=== PATIENT | male | born 1950 | race Caucasian/White ===

== ENCOUNTER 2022-07-22 17:20 | Emergency (ER) | payer MEDICARE, OTHER ==
[2022-07-22] VITALS (10 sets, daily range): BP systolic 178–224; BP diastolic 94–121
[~2022-07-22] VITALS: Ht 182.9 cm; Wt 80.3 kg
[2022-07-22] MEDS ORDERED: CHOLESTYRAMINE4 G1 PO (19:06)
[2022-07-22] MEDS ORDERED: SPS15 GM/601 PO (19:07)
[2022-07-22] MEDS ORDERED: LORTAB 1010 MG PO (19:08)
[2022-07-22] MEDS ORDERED: FUROSEMIDE20 MG PO (19:09)
[2022-07-22] MEDS ORDERED: COREG12.5 MG PO (19:10)
[2022-07-22] MEDS ORDERED: ALLOPURINOL100 MG PO (19:10)
[2022-07-22] MEDS ORDERED: OMEPRAZOLE20 MG PO (19:12)
[2022-07-22 19:44] LABS: URINE BILIRUBIN - DIPSTICK NEGATIVE (NEGATIVE); URINE BLOOD DIPSTICK LARGE (NEGATIVE); URINE GLUCOSE - DIPSTICK NEGATIVE (NEGATIVE); URINE KETONE NEGATIVE (NEGATIVE); URINE LEUK ESTERASE NEGATIVE (NEGATIVE); URINE PH 5.5 (4.5-8.0); URINE PROTEIN - DIPSTICK 100 mg/dL (NEG-TRACE); URINE UROBILINOGEN - DIPSTICK 0.2 E.U./dL (0.2)
[2022-07-22 19:45] LABS: URINE NITRITE - DIPSTICK NEGATIVE (Negative)
[2022-07-22 19:46] LABS: URINE COLOR DK. YELLOW
[2022-07-22 19:46] LABS: BASO% 0.6 % (0-3); EOS% 2.4 % (0-8); HEMATOCRIT 21.6 % (39.0-50.0); IMMATURE GRANULOCYTES 0.6 % (0.0-5.0); LYMPH% 19.7 % (15-41); MEAN CELL VOLUME 113.1 fL CALC (80.0-100.0); MEAN CORPUSCULAR HGB 35.1 pG CALC (26.0-32.0); MONO% 14.1 % (2-13); NEUT# 3.34 thou/uL (1.82-7.42); NEUT% 62.6 % (42-76); RED BLOOD COUNT 1.91 mill/uL (4.70-6.10); RED CELL DISTRI WIDTH 13.4 % (11.5-15.5)
[2022-07-22 19:51] LABS: HEMOGLOBIN 6.7 g/dl (14.0-18.0)
[2022-07-22 19:54] LABS: URINE RBC >100 RBC/hpf (0-5)
[2022-07-22 20:03] LABS: ALBUMIN 3.6 g/dL (3.2-5.0); BILIRUBIN, TOTAL 0.3 mg/dL (0.2-1.3); POTASSIUM 4.3 mmol/l (3.5-5.1); TOTAL PROTEIN 6.4 g/dL (6.3-8.2)
[2022-07-22 20:06] LABS: ACT PARTIAL THROMBO TIME 18.1 SECONDS (20.0-32.5); PROTHROMBIN TIME 10.2 SECONDS (9.0-12.5)
[2022-07-22 20:14] LABS: CREATININE 6.1 mg/dL (0.7-1.3)
== END 2022-07-22 22:33 | disposition short-term general hospital (02) ==
LOC: ED 17:20
PROVIDERS: Emergency Medicine
PROC: 30233N1 Transfusion of Nonautologous Red Blood Cells into Peripheral Vein, Percutaneous Approach (ICD-10-PCS; principal; 2022-07-22)
DX: N17.9 Acute kidney failure, unspecified (principal); D64.9 Anemia, unspecified; I16.9 Hypertensive crisis, unspecified; R31.9 Hematuria, unspecified; I12.9 Hypertensive chronic kidney disease with stage 1 through stage 4 chronic kidney disease, or unspecified chronic kidney disease; N18.9 Chronic kidney disease, unspecified; Z20.822 Contact with and (suspected) exposure to COVID-19
CPT/HCPCS: P9016

== ENCOUNTER 2022-08-21 09:35 | Inpatient (IN) | payer MEDICARE, OTHER ==
[~2022-08-21] VITALS: Ht 182.9 cm; Wt 82.6 kg
[2022-08-21] VITALS (15 sets, daily range): BP systolic 106–219; BP diastolic 46–101
[~2022-08-21 09:35] MED LIST: ALLOPURINOL100 MG PO; CHOLESTYRAMINE4 G1 PO; COREG12.5 MG PO; FUROSEMIDE20 MG PO; LORTAB 1010 MG PO; OMEPRAZOLE20 MG PO; SPS15 GM/601 PO
[2022-08-21] MEDS ORDERED: OMNI-PAC300 MG PO (10:00)
[2022-08-21 11:23] LABS: BASO% 0.6 % (0-3); EOS% 3.6 % (0-8); HEMATOCRIT 23.1 % (39.0-50.0); IMMATURE GRANULOCYTES 0.3 % (0.0-5.0); LYMPH% 7.6 % (15-41); MEAN CELL VOLUME 111.1 fL CALC (80.0-100.0); MEAN CORPUSCULAR HGB 33.7 pG CALC (26.0-32.0); MEAN CORPUSCULAR HGB CONC 30.3 g/dL CAL (32.0-36.0); MONO% 10.1 % (2-13); NEUT# 6.06 thou/uL (1.82-7.42); NEUT% 77.8 % (42-76); RED BLOOD COUNT 2.08 mill/uL (4.70-6.10); RED CELL DISTRI WIDTH 14.8 % (11.5-15.5)
[2022-08-21 11:24] LABS: HEMOGLOBIN 7.1 g/dl (14.0-18.0)
[2022-08-21 12:37] LABS: ALBUMIN 3.8 g/dL (3.2-5.0); BILIRUBIN, TOTAL 0.3 mg/dL (0.2-1.3); TOTAL PROTEIN 6.7 g/dL (6.3-8.2)
[2022-08-21 12:42] LABS: CREATININE 8.8 mg/dL (0.7-1.3)
[2022-08-21 12:43] LABS: POTASSIUM 7.3 mmol/l (3.5-5.1)
[2022-08-21] MEDS ORDERED: TORSEMIDE20 M1 PO (15:15)
[2022-08-21 15:21] LABS: POTASSIUM 6.3 mmol/l (3.5-5.1)
[2022-08-21 15:22] LABS: CREATININE 8.4 mg/dL (0.7-1.3)
[2022-08-21 19:07] LABS: CREATININE 8.4 mg/dL (0.7-1.3); POTASSIUM 6.8 mmol/l (3.5-5.1)
[2022-08-21 20:38] LABS: URINE BILIRUBIN - DIPSTICK NEGATIVE (NEGATIVE); URINE BLOOD DIPSTICK TRACE-INTACT (NEGATIVE); URINE CLARITY CLEAR; URINE COLOR YELLOW; URINE GLUCOSE - DIPSTICK NEGATIVE (NEGATIVE); URINE KETONE TRACE mg/dL (NEGATIVE); URINE LEUK ESTERASE NEGATIVE (Negative); URINE NITRITE - DIPSTICK NEGATIVE (Negative); URINE PROTEIN - DIPSTICK 100 mg/dL (NEG-TRACE); URINE SPECIFIC GRAVITY >=1.030; URINE UROBILINOGEN - DIPSTICK 0.2 E.U./dL (0.2)
[2022-08-21 20:59] LABS: URINE RBC 0-2 RBC/hpf (0-5); URINE WBC 0-2 WBC/hpf (0-5)
[2022-08-21 23:32] LABS: CREATININE 9.6 mg/dL (0.7-1.3); POTASSIUM 7.3 mmol/l (3.5-5.1)
[2022-08-22 03:05] LABS: BASO% 0.3 % (0-3); EOS% 3.2 % (0-8); HEMATOCRIT 21.2 % (39.0-50.0); IMMATURE GRANULOCYTES 0.3 % (0.0-5.0); LYMPH% 12.3 % (15-41); MEAN CELL VOLUME 108.7 fL CALC (80.0-100.0); MEAN CORPUSCULAR HGB 33.8 pG CALC (26.0-32.0); MEAN CORPUSCULAR HGB CONC 31.1 g/dL CAL (32.0-36.0); NEUT# 5.12 thou/uL (1.82-7.42); NEUT% 70.9 % (42-76); RED BLOOD COUNT 1.95 mill/uL (4.70-6.10); RED CELL DISTRI WIDTH 14.7 % (11.5-15.5)
[2022-08-22 03:13] LABS: TOTAL PROTEIN 5.4 g/dL (6.3-8.2)
[2022-08-22 03:36] LABS: HEMOGLOBIN 6.6 g/dl (14.0-18.0)
[2022-08-22 03:37] LABS: ALBUMIN 2.8 g/dL (3.2-5.0); BILIRUBIN, TOTAL 0.1 mg/dL (0.2-1.3); CREATININE 8.2 mg/dL (0.7-1.3); POTASSIUM 5.5 mmol/l (3.5-5.1)
[2022-08-22 04:06] VITALS: BP 129/55
[2022-08-22 04:37] VITALS: BP 129/60
[2022-08-22 04:38] VITALS: BP 129/60
[2022-08-22 04:54] VITALS: BP 132/64
[2022-08-22 04:56] VITALS: BP 132/64
== END 2022-08-22 05:45 | disposition short-term general hospital (02) | DRG 683 ==
LOC: ED 09:35 → ED-I 10:16 → ED 10:16 → ED-I 13:10 → ED 14:07 → MS2 14:08
PROVIDERS: Family Medicine; Internal Medicine Nephrology; ADMIT Internal Medicine; ATTEND Internal Medicine
PROC: 30233N1 Transfusion of Nonautologous Red Blood Cells into Peripheral Vein, Percutaneous Approach (ICD-10-PCS; principal; 2022-08-22)
DX: N17.9 Acute kidney failure, unspecified (principal); I12.0 Hypertensive chronic kidney disease with stage 5 chronic kidney disease or end stage renal disease; E87.5 Hyperkalemia; N18.5 Chronic kidney disease, stage 5; N25.81 Secondary hyperparathyroidism of renal origin; E86.9 Volume depletion, unspecified; D64.9 Anemia, unspecified; S51.811A Laceration without foreign body of right forearm, initial encounter; M25.551 Pain in right hip; V58.4XXA Person boarding or alighting a pick-up truck or van injured in noncollision transport accident, initial encounter
CPT/HCPCS: P9016

== ENCOUNTER 2022-10-31 10:51 | Day surgery (SDC) | payer MEDICARE, OTHER ==
[~2022-10-31] VITALS: Ht 182.9 cm; Wt 78.9 kg
[~2022-10-31 10:51] MED LIST changes: +OMNI-PAC300 MG PO; +PROCARDIA XL30 MG PO; +TORSEMIDE20 M1 PO
[2022-10-31 15:30] VITALS: BP 157/87
== END 2022-10-31 15:05 | disposition home or self-care (01) ==
LOC: ORM 10:51
PROVIDERS: ATTEND Urology
PROC: 0T5B8ZZ Destruction of Bladder, Via Natural or Artificial Opening Endoscopic (ICD-10-PCS; principal; 2022-10-31)
PROC: 0T768DZ Dilation of Right Ureter with Intraluminal Device, Via Natural or Artificial Opening Endoscopic (ICD-10-PCS; 2022-10-31)
DX: C67.8 Malignant neoplasm of overlapping sites of bladder (principal); I12.0 Hypertensive chronic kidney disease with stage 5 chronic kidney disease or end stage renal disease; N18.6 End stage renal disease; K21.9 Gastro-esophageal reflux disease without esophagitis; Z99.2 Dependence on renal dialysis; Z87.891 Personal history of nicotine dependence
CPT/HCPCS: C1769; J1956; Q9966